=== PATIENT | female | born 1935 | race Caucasian/White ===

== ENCOUNTER 2018-01-27 08:35 | Emergency (ER) | payer MEDICARE, OTHER ==
[~2018-01-27 08:35] MED LIST: AMLO1CAP11 PO; BISA-72 PO; FURO20TA4 PO; FURO40TA5 PO; MULT1TAB70 PO; OXYB5TAB10 PO; POTA-79 PO; TRAM50TA4 PO
[2018-01-27] MEDS ORDERED: TETANUS/DIPHTHERIA TOXOID [ADULT] 0.5 ML VIAL IM ONE (09:46)
== END 2018-01-27 10:54 | disposition home or self-care (01) ==
LOC: EDH 08:35
DX: S80.02XA Contusion of left knee, initial encounter (principal); S80.01XA Contusion of right knee, initial encounter; S60.511A Abrasion of right hand, initial encounter; M06.9 Rheumatoid arthritis, unspecified; W18.39XA Other fall on same level, initial encounter; Y93.89 Activity, other specified; Y92.89 Other specified places as the place of occurrence of the external cause; Y99.8 Other external cause status
CPT/HCPCS: 90471; 90714

== ENCOUNTER 2019-01-10 06:20 | Inpatient (IN) | payer OTHER | END 2019-01-14 18:15 | LOC: DAHIP 06:20 → 4AH 12:16 | PROC: 0SRC0J9 Replacement of Right Knee Joint with Synthetic Substitute, Cemented, Open Approach (ICD-10-PCS; principal; 2019-01-10 08:34) | DX: M17.11 Unilateral primary osteoarthritis, right knee (principal); Z68.42 Body mass index [BMI] 45.0-49.9, adult; E66.01 Morbid (severe) obesity due to excess calories ==